=== PATIENT | male | born 1980 | race Caucasian/White ===

== ENCOUNTER → 2023-11-19 14:41 | Outpatient (REF) | payer OTHER, SELFPAY ==
--- NOTE | 2023-11-19 14:47 | CA_ITS ---
Transthoracic Echocardiogram Patient (Last, First, Middle): Ki Macedo J Gender: Male Date of : 1980 Age: 43 Procedure Date: 11/19/2023 Procedure Type: Transthoracic Echocardiogram Location: OP Height: 185.42 cm Weight: 92.99 kg BSA: 2.17 m2 Heart Rate: 84 bpm BP: 139 / 88 mmHg [employer]: RADHA ARRIOLA Referring MD: Li Monaco MD Symptoms: R00.2 PALPITATIONS RULO OUT AFIB ANATOMICAL ABNORMALITY Study Quality: Adequate ECG Rhythm: Sinus Conclusions: - The left ventricular systolic function is normal. The calculated ejection fraction is 63% by biplane method. - No obvious valvular pathology seen on this study. Findings Left Ventricle Normal left ventricular cavity size. There is normal left ventricular wall thickness. The left ventricular systolic function is normal. The calculated ejection fraction is 63% by biplane method. There is no evidence of regional wall motion abnormalities. Diastolic function is normal for age. LV peak GLS -20.9%. Right Ventricle Mildly increased right ventricular cavity size. There is normal right ventricular systolic function. Atria Both atria are normal in size. Aortic Valve There is a normal trileaflet aortic valve. There is no aortic valve stenosis. There is no aortic valve regurgitation. Mitral Valve The mitral valve appears normal. There is no mitral valve regurgitation. There is no mitral valve stenosis. Pulmonic Valve The pulmonic valve is likely normal. Tricuspid Valve Normal tricuspid valve structure. There is trace tricuspid valve regurgitation. There is no evidence of pulmonary hypertension. Great Vessels The asc aorta is normal in size. Venous The inferior vena cava is normal in size and collapses greater than 50% with inspiration. Pericardium/Pleural There is no evidence of pericardial effusion. Prior Study Comparison No prior study available for comparison. Recommendations, Care & Conclusions No obvious valvular pathology seen on this study. Measurements 2D Linear Measurements IVSd: 0.92 0.6-0.9/0.6-1.0 cm LVIDd: 4.89 3.9-5.3/4.2-5.9 cm LVIDd Index: 2.25 2.4-3.2/2.2-3.1 cm/m2 LVIDs: 3.50 2.0-3.6 cm LVPWd: 0.74 0.7-1.1 cm LA Diam: 3.50 2.7-3.8/3.0-4.0 cm LAIDs Index: 1.61 1.5-2.3 cm/m2 LV Mass: 171.58 67-162/88-224 g LV Mass Index: 79.07 43-95/49-115 g/m2 LVOT Diam: 2.30 3.0+(-)1.3 cm 2D Systolic Function EF 4C: 64.20 >55% EF 2C: 62.60 >55% EF BiP: 63.10 >55% Mitral Valve MV Pk E: 0.74 MV PK A: 0.68 MV Decel Time: 170.00 E/A: 1.10 E'Lateral: 11.60 E'Medial: 11.60 E/E' Med: 6.40 E/E' Lat: 6.40 PHT: 50.00 MVA PHT: 4.40 Decel [place]: 4.34 Aortic Valve AoV Pk Piter: 1.37 AoV Mn Piter: 0.96 AoV VTI: 0.27 AoV Pk Grad: 8.00 Aov Mn Grad: 4.00 TIERRA Cont.VTI: 2.98 LVOT LVOT Pk Piter: 1.00 LVOT Mn Piter: 0.73 LVOT VTI: 0.20 LVOT Pk Grad: 4.00 LVOT Mn Grad: 2.00 LVOT Diam: 2.30 LVOT Area: 4.15 Diastolic Function MV Pk E: 0.74 MV Pk A: 0.68 E/A: 1.10 E'Medial: 11.60 E/E' Med: 6.40 E' Laterial: 11.60 E/E' Lat: 6.40 Right Ventricle TAPSE (mm): 25.60 TVS' Piter: 15.00 Tricuspid Valve TR Pk Piter: 1.77 TR Pk Grad: 13.00 Great Vessels Aorta Sinus of Valsalva: 3.40 2.0-3.5 cm Ao Asc: 3.20 2.1-3.4 cm Updated in Other Vendor System with Status of Final Arthur Rivas MD electronically signed on 11/20/2023 3:03:27 PM with status of Final
== END ==
LOC: HO.CARD 14:41
PROVIDERS: Visit Provider Family Medicine
DX: R00.2 Palpitations (principal)
CPT/HCPCS: 93306; 93356

== ENCOUNTER → 2023-11-19 14:47 | Outpatient (BNV) | payer OTHER, SELFPAY | PROVIDERS: Visit Provider Internal Medicine | DX: R00.2 Palpitations (principal) | CPT/HCPCS: 93306 ==